=== PATIENT | female | born 2000 | race African-American/Black ===

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

== ENCOUNTER 2019-05-29 10:14 | Emergency (ER) | payer MEDICAID ==
[~2019-05-29] VITALS: Ht 165.1 cm; Wt 60.0 kg
[2019-05-29] MEDS ORDERED: SODIUM CHLORIDE 0.9% 1,000 ML IV ONE ×2 (11:30→17:15)
[2019-05-29 15:04] LABS: CLARITY URINE CLEAR (CLEAR); COLOR URINE DARK YELLOW (YELLOW); KETONES URINE 3+ (NEGATIVE); LEUKOCYTE ESTERASE URINE NEGATIVE (NEGATIVE); NITRITE URINE NEGATIVE (NEGATIVE); OCCULT BLOOD URINE NEGATIVE (NEGATIVE); PH URINE 6.5 (4.5-8.0); PROTEIN URINE 2+ (NEGATIVE); SPECIFIC GRAVITY URINE 1.038 (1.005-1.030)
[2019-05-29 15:12] LABS: BASOPHILS % 0.3 % (0.0-2.0); EOSINOPHILS % 0.3 % (0.0-5.0); HEMATOCRIT. 39.3 % (36.0-48.0); HEMOGLOBIN. 13.1 g/dL (12.0-16.0); LYMPHOCYTES % 35.5 % (20.0-50.0); MEAN CORPUSCULAR HEMOGLOBIN 26.2 pg (28.0-32.0); MEAN PLATELET VOLUME 7.8 fl (7.4-10.4); MONOCYTES % 10.4 % (2.0-8.0); NEUTROPHILS % 53.5 % (40.0-76.0); PLATELET 261 x1000/uL (130-400); RED BLOOD CELL COUNT 4.98 mill/uL (4.2-5.4); RED CELL DISTRIBUTION WIDTH 14.7 % (11.6-14.6)
[2019-05-29 15:20] LABS: CHLORIDE 102 mEq/L (98-107)
[2019-05-29 15:21] LABS: INR 1.2; PROTHROMBIN TIME 11.9 sec (9.6-11.0)
[2019-05-29 15:45] LABS: B-HCG QUANTITATIVE 11795 mIU/mL (<3)
[2019-05-29 15:55] LABS: METHADONE URINE SCREEN NEGATIVE (NEGATIVE); OPIATES URINE SCREEN NEGATIVE (NEGATIVE)
[2019-05-29 15:56] LABS: *AMPHETAMINES SCREEN URINE NEGATIVE (NEGATIVE); *BARBITURATES SCREEN URINE NEGATIVE (NEGATIVE); *BENZODIAZEPINES SCREEN URINE NEGATIVE (NEGATIVE); *COCAINE SCREEN URINE NEGATIVE (NEGATIVE); PHENCYCLIDINE URINE SCREEN NEGATIVE (NEGATIVE)
[2019-05-29 15:57] LABS: CANNABINOID URINE SCREEN PRESUMTIVE POSITIVE (NEGATIVE)
[2019-05-29] MEDS ORDERED: FUROSEMIDE 40MG TABLET PO ONE (17:45)
[2019-05-29 18:17] VITALS: BP 120/70
[2019-05-29] MEDS ORDERED: QUETIAPINE FUMARATE 50MG TABLET PO ONE (20:00)
== END 2019-05-29 18:17 | disposition home or self-care (01) ==
LOC: ER 10:24
DX: R10.32 Left lower quadrant pain (principal); R11.10 Vomiting, unspecified; F12.20 Cannabis dependence, uncomplicated; R61 Generalized hyperhidrosis; E86.0 Dehydration; E87.1 Hypo-osmolality and hyponatremia; E87.6 Hypokalemia; R80.9 Proteinuria, unspecified; N17.0 Acute kidney failure with tubular necrosis; R82.71 Bacteriuria; R82.4 Acetonuria; M43.9 Deforming dorsopathy, unspecified; J45.909 Unspecified asthma, uncomplicated; Z87.440 Personal history of urinary (tract) infections; Z86.19 Personal history of other infectious and parasitic diseases; Z85.43 Personal history of malignant neoplasm of ovary
CPT/HCPCS: 36415; 76801; 76817; 80053; 80305; 81003; 81025; 83690; 83735; 84702; 85025; 85610; 85651; 99284; J7030

== ENCOUNTER 2019-06-18 15:34 | Emergency (ER) | payer MEDICAID ==
[~2019-06-18] VITALS: Ht 157.5 cm; Wt 57.0 kg
[2019-06-18] MEDS ORDERED: ACETAMINOPHEN 325MG TABLET PO PRN (23:30)
[2019-06-19 01:40] LABS: BASOPHILS % 0.7 % (0.0-2.0); EOSINOPHILS % 0.9 % (0.0-5.0); HEMATOCRIT. 44.1 % (36.0-48.0); HEMOGLOBIN. 14.4 g/dL (12.0-16.0); LYMPHOCYTES % 42.9 % (20.0-50.0); MEAN CORPUSCULAR HEMOGLOBIN 26.2 pg (28.0-32.0); MEAN CORPUSCULAR VOLUME 80.3 fL (81.0-99.0); MEAN PLATELET VOLUME 7.9 fl (7.4-10.4); MONOCYTES % 8.5 % (2.0-8.0); PLATELET 317 x1000/uL (130-400); RED BLOOD CELL COUNT 5.49 mill/uL (4.2-5.4); RED CELL DISTRIBUTION WIDTH 14.3 % (11.6-14.6)
[2019-06-19 01:58] VITALS: BP 105/75
[2019-06-19 02:09] LABS: CHLORIDE 100 mEq/L (98-107)
[2019-06-19 02:10] LABS: B-HCG QUANTITATIVE 73343 mIU/mL (<3)
== END 2019-06-19 03:26 | disposition home or self-care (01) ==
LOC: ER 15:34
DX: O46.91 Antepartum hemorrhage, unspecified, first trimester (principal); O99.511 Diseases of the respiratory system complicating pregnancy, first trimester; Z3A.08 8 weeks gestation of pregnancy; Z87.440 Personal history of urinary (tract) infections; Z87.09 Personal history of other diseases of the respiratory system
CPT/HCPCS: 36415; 76801; 80053; 84702; 85025; 86850; 86900; 99284

== ENCOUNTER 2019-12-07 08:33 | Emergency (ER) | payer MEDICAID ==
[~2019-12-07] VITALS: Ht 152.4 cm; Wt 54.0 kg
[2019-12-07] MEDS ORDERED: KETOROLAC 30MG/ML VIAL IV STA (09:12)
[2019-12-07] MEDS ORDERED: ONDANSETRON HCL 4MG/2ML INJ IV STA (09:12)
[2019-12-07] MEDS ORDERED: SODIUM CHLORIDE 0.9% 1,000 ML IV ONE (09:12)
[2019-12-07] MEDS ORDERED: MAGNESIUM/ALUMINUM HYDROXIDE/SIMETHICONE 30ML UDC PO STA (09:22)
[2019-12-07] MEDS ORDERED: VISCOUS LIDOCAINE 2% 15 ML UDC PO STA (09:22)
[2019-12-07] MEDS ORDERED: DICYCLOMINE 10 MG/5 ML ORAL SYR PO STA (09:22)
[2019-12-07] MEDS ORDERED: FAMOTIDINE 20MG/2ML VIAL IV STA (09:22)
[2019-12-07 09:23] LABS: BASOPHILS % 0.9 % (0.0-2.0); EOSINOPHILS % 0.2 % (0.0-5.0); HEMATOCRIT. 39.9 % (36.0-48.0); HEMOGLOBIN. 13.1 g/dL (12.0-16.0); LYMPHOCYTES % 12.7 % (20.0-50.0); MEAN CORPUSCULAR HEMOGLOBIN 25.7 pg (28.0-32.0); MEAN CORPUSCULAR VOLUME 78.3 fL (81.0-99.0); MEAN PLATELET VOLUME 8.4 fl (7.4-10.4); MONOCYTES % 3.2 % (2.0-8.0); PLATELET 274 x1000/uL (130-400); RED BLOOD CELL COUNT 5.09 mill/uL (4.2-5.4); RED CELL DISTRIBUTION WIDTH 16.4 % (11.6-14.6)
[2019-12-07 09:24] LABS: CLARITY URINE CLOUDY (CLEAR); COLOR URINE DK YELLOW (YELLOW); KETONES URINE 4+ (NEGATIVE); LEUKOCYTE ESTERASE URINE NEGATIVE (NEGATIVE); NITRITE URINE NEGATIVE (NEGATIVE); OCCULT BLOOD URINE NEGATIVE (NEGATIVE); PROTEIN URINE 4+ (NEGATIVE); SPECIFIC GRAVITY URINE 1.034 (1.005-1.030); UROBILINOGEN URINE 0.2 E.U./dL (0.2-1.0)
[2019-12-07 09:31] LABS: CHLORIDE 102 mEq/L (98-107)
[2019-12-07 09:33] LABS: INR 1.1; PROTHROMBIN TIME 11.9 sec (9.6-11.0)
[2019-12-07] MEDS ORDERED: LIDOCAINE HCL/PF 1% 10 MG/ML 5ML VIAL ONE (11:26)
[2019-12-07] MEDS ORDERED: ONDANSETRON HCL 4MG/2ML INJ IV ONE (13:15)
[2019-12-07 15:02] VITALS: BP 100/80
== END 2019-12-07 15:43 | disposition home or self-care (01) ==
LOC: ER 08:33
DX: R11.2 Nausea with vomiting, unspecified (principal); J45.909 Unspecified asthma, uncomplicated
CPT/HCPCS: 36415; 80053; 81003; 81025; 83690; 85025; 85610; 93005; 96374; 96375; 96376; 99284; J1885; J2405; J3490; J7030

== ENCOUNTER 2019-12-09 22:18 | Inpatient (IN) | payer MEDICAID, OTHER ==
[~2019-12-09] VITALS: Ht 160 cm; Wt 49.9 kg
[2019-12-09 23:42] LABS: CLARITY URINE CLOUDY (CLEAR); COLOR URINE YELLOW (YELLOW); KETONES URINE 3+ (NEGATIVE); LEUKOCYTE ESTERASE URINE NEGATIVE (NEGATIVE); NITRITE URINE NEGATIVE (NEGATIVE); OCCULT BLOOD URINE TRACE (NEGATIVE); PH URINE 5.5 (4.5-8.0); PROTEIN URINE 3+ (NEGATIVE); SPECIFIC GRAVITY URINE 1.034 (1.005-1.030)
[2019-12-09 23:54] LABS: *BARBITURATES SCREEN URINE NEGATIVE (NEGATIVE); *BENZODIAZEPINES SCREEN URINE NEGATIVE (NEGATIVE)
[2019-12-09 23:55] LABS: *AMPHETAMINES SCREEN URINE NEGATIVE (NEGATIVE); *COCAINE SCREEN URINE NEGATIVE (NEGATIVE); METHADONE URINE SCREEN NEGATIVE (NEGATIVE); OPIATES URINE SCREEN NEGATIVE (NEGATIVE)
[2019-12-09 23:56] LABS: PHENCYCLIDINE URINE SCREEN NEGATIVE (NEGATIVE)
[2019-12-09 23:58] LABS: CANNABINOID URINE SCREEN PRESUMTIVE POSITIVE (NEGATIVE)
[2019-12-10 00:10] LABS: CHLORIDE 91 mEq/L (98-107)
[2019-12-10 00:15] LABS: ETHANOL BLOOD < 10 mg/dL
[2019-12-10 00:22] LABS: B-HCG QUANTITATIVE < 1 mIU/mL (<3)
[2019-12-10 00:31] LABS: BASOPHILS % 0.2 % (0.0-2.0); HEMATOCRIT. 44.3 % (36.0-48.0); HEMOGLOBIN. 14.5 g/dL (12.0-16.0); LYMPHOCYTES % 33.3 % (20.0-50.0); MEAN CORPUSCULAR HEMOGLOBIN 25.6 pg (28.0-32.0); MEAN CORPUSCULAR VOLUME 77.9 fL (81.0-99.0); MEAN PLATELET VOLUME 8.4 fl (7.4-10.4); MONOCYTES % 9.3 % (2.0-8.0); NEUTROPHILS % 57.2 % (40.0-76.0); PLATELET 318 x1000/uL (130-400); RED BLOOD CELL COUNT 5.68 mill/uL (4.2-5.4); RED CELL DISTRIBUTION WIDTH 15.8 % (11.6-14.6)
[2019-12-10] MEDS ORDERED: KETOROLAC 30MG/ML VIAL IV ONE (01:00)
[2019-12-10] MEDS ORDERED: POTASSIUM CHLORIDE 20MEQ TABLET SR PO SCH (01:00)
[2019-12-10] MEDS ORDERED: POTASSIUM CHLORIDE INJ 40 MEQ in DEXT 5% WATER 250 ML IV SCH (02:00)
[2019-12-10 05:30] VITALS: BP 135/93
[2019-12-10] MEDS ORDERED: IPRATROPIUM/ALBUTEROL 0.5-3(2.5)MG/3ML NEB HHN PRN (07:15)
[2019-12-10] MEDS ORDERED: NA PHOS,M-B/NA PHOS,DI-BA ENEMA 118ML PR PRN (07:15)
[2019-12-10] MEDS ORDERED: DOCUSATE SODIUM 100MG CAPSULE PO PRN (07:15)
[2019-12-10] MEDS ORDERED: GUAIFENESIN 200MG/10ML SUGAR FREE UDC PO PRN (07:15)
[2019-12-10] MEDS ORDERED: CLONIDINE 0.1MG TABLET PO PRN (07:15)
[2019-12-10] MEDS ORDERED: DIPHENHYDRAMINE 50MG/ML VIAL IV PRN (07:15)
[2019-12-10] MEDS ORDERED: ACETAMINOPHEN 325MG TABLET PO PRN (07:15)
[2019-12-10] MEDS ORDERED: MAGNESIUM/ALUMINUM HYDROXIDE/SIMETHICONE 30ML UDC PO PRN (07:15)
[2019-12-10] MEDS ORDERED: HYDROCODONE/ACETAMINOPHEN 10/325MG TABLET PO PRN (07:15)
[2019-12-10] MEDS ORDERED: LORAZEPAM 2MG/ML CPJ IV PRN (07:15)
[2019-12-10] MEDS ORDERED: HYDRALAZINE 20MG/ML VIAL IV PRN (07:15)
[2019-12-10] MEDS ORDERED: KCL 20MEQ/100ML PREMIX 100 ML IV ONE (07:15)
[2019-12-10 08:00] VITALS: BP_SYST 107; BP_SYST 133; BP_DIAS 104; BP_DIAS 80
[2019-12-10] MEDS ORDERED: POTASSIUM CHLORIDE INJ 60 MEQ in DEXT 5% WATER 500 ML IV SCH (08:00)
[2019-12-10] MEDS: ENOXAPARIN 40MG/0.4ML SYR SUBCUT SCH (08:45)
[2019-12-10] MEDS: SODIUM CHLORIDE 0.45% 1,000 ML IV SCH (08:47)
[2019-12-10 11:59] VITALS: BP 107/80
[2019-12-10] MEDS: SODIUM CHLORIDE 0.9% INJ 3ML FLUSH IVF SCH ×2 (13:29→21:03)
[2019-12-10 16:00] VITALS: BP 142/96
[2019-12-10] MEDS: ONDANSETRON HCL 4MG/2ML INJ IV PRN ×2 (16:43→22:07)
[2019-12-11 04:30] VITALS: BP 109/75
[2019-12-11] MEDS: SODIUM CHLORIDE 0.45% 1,000 ML IV SCH ×2 (05:16→08:32)
[2019-12-11] MEDS: SODIUM CHLORIDE 0.9% INJ 3ML FLUSH IVF SCH (05:19)
[2019-12-11] MEDS: ONDANSETRON HCL 4MG/2ML INJ IV PRN (05:23)
[2019-12-11 08:00] VITALS: BP 115/79
[2019-12-11 08:20] LABS: CHLORIDE 93 mEq/L (98-107)
[2019-12-11] MEDS: ENOXAPARIN 40MG/0.4ML SYR SUBCUT SCH (08:32)
[2019-12-11 08:41] LABS: BASOPHILS % 0.4 % (0.0-2.0); EOSINOPHILS % 0.7 % (0.0-5.0); HEMATOCRIT. 45.4 % (36.0-48.0); LYMPHOCYTES % 70.1 % (20.0-50.0); MEAN CORPUSCULAR HEMOGLOBIN 25.7 pg (28.0-32.0); MEAN CORPUSCULAR VOLUME 77.7 fL (81.0-99.0); MEAN PLATELET VOLUME 8.4 fl (7.4-10.4); MONOCYTES % 5.9 % (2.0-8.0); NEUTROPHILS % 22.9 % (40.0-76.0); PLATELET 284 x1000/uL (130-400); RED BLOOD CELL COUNT 5.84 mill/uL (4.2-5.4)
[2019-12-11 10:20] VITALS: BP 115/79
== END 2019-12-11 12:30 | disposition home or self-care (01) | DRG 425 ==
LOC: ER 22:21 → EDBEDREQ 12-10 02:04 → ENRESERV 12-10 04:27 → 8WST 12-10 05:20
PROVIDERS: ADMIT Internal Medicine; ATTEND Internal Medicine
DX: E87.6 Hypokalemia (principal); N83.202 Unspecified ovarian cyst, left side; F12.90 Cannabis use, unspecified, uncomplicated; D64.9 Anemia, unspecified; Y04.0XXA Assault by unarmed brawl or fight, initial encounter; Y92.89 Other specified places as the place of occurrence of the external cause; Y93.89 Activity, other specified; Y99.8 Other external cause status
CPT/HCPCS: 36415; 74021; 76830; 76856; 80053; 80305; 80320; 81003; 83735; 84132; 84702; 85025; 86850; 86900; 93005; 99285; J1650; J1885; J2405; J3480; J7060; G0480